=== PATIENT | female | born 1990 | race Caucasian/White ===

== ENCOUNTER 2016-09-28 22:36 | Emergency (ER) | payer OTHER ==
[2016-09-29 01:42] LABS: BASOPHIL 0.3 % (0-2); EOSINOPHIL 2.9 % (0-5); HCT 36.8 % (37.0-47.0); HGB 12.9 g/dl (12.5-16.0); LYMPHOCYTE 33.3 % (15-48); MCH 31.2 pg (25.0-31.0); MCHC 35.1 g/dL (32.0-36.0); MCV 89.1 fL (78.0-100.0); MONOCYTE 7.5 % (0-12); MPV 9.2 fL (6.0-9.5); PLT 208 K/uL (150-400); RBC 4.13 M/uL (4.20-5.40); RDW 12.2 % (11.5-14.0); WBC 7.3 K/uL (4.0-10.5)
[2016-09-29 01:57] LABS: BILIRUBIN - TOTAL 0.3 mg/dL (0.1-1.0); CREATININE 0.6 mg/dL (0.5-1.0); GLOBULIN (CALCULATION) 2.4 g/dL (2.2-4.2); POTASSIUM 3.3 mmol/L (3.5-5.1); TOTAL PROTEIN 6.4 g/dL (6.4-8.3)
== END 2016-09-29 02:45 | disposition home or self-care (01) ==
LOC: FER 22:36
PROVIDERS: Emergency Medicine Emergency Medical Services
DX: O99.89 Other specified diseases and conditions complicating pregnancy, childbirth and the puerperium (principal); R07.9 Chest pain, unspecified; R06.00 Dyspnea, unspecified; Z88.6 Allergy status to analgesic agent; Z91.013 Allergy to seafood; Z3A.10 10 weeks gestation of pregnancy
CPT/HCPCS: 36415; 80053; 83690; 84702; 85025; 93005; 94640; 94760